=== PATIENT | male | born 1985 | race Caucasian/White ===

== ENCOUNTER 2018-04-02 04:52 | Emergency (ER) | payer OTHER ==
[~2018-04-02] VITALS: Ht 177.8 cm; Wt 84.1 kg
[~2018-04-02 04:52] MED LIST: LORTAB 5/500 501 TAB PO; NO HOME MEDICATIONS; ZOFRAN 4MG T4 MG/TAB PO
[2018-04-02 04:54] VITALS: TEMP 97
[2018-04-02 05:42] LABS: COLLECTION METHOD CLEAN CATCH
[2018-04-02 05:45] LABS: BASO # 0.1 (0.0-0.2); BASO % 1.2 % (0.0-2.0); EOS # 0.3 (0.0-0.7); GRAN # 2.4 (1.4-6.5); GRAN % 34.8 % (42.2-75.2); HEMATOCRIT 41.6 % (42.0-52.0); HEMOGLOBIN 15.1 g/dl (13.5-18.0); LYMPH # 3.5 (1.2-3.4); LYMPH % 52.4 % (20.0-51.0); MEAN CELL VOLUME 83 fl (80.0-100.0); MEAN CORPUSCULAR HEMOGLOBIN 30 pg (27.0-31.0); MEAN CORPUSCULAR HGB CONC 36 g/dl (33.0-37.0); MEAN PLATELET VOLUME 11.3 fl (7.4-10.4); MONO # 0.5 (0.1-0.6); MONO % 7.3 % (1.7-9.3); PLATELET COUNT 145 K/mm3 (130-400); RED BLOOD COUNT 5.01 M/mm3 (4.20-5.60); REDCELL DISTRIBUTION WIDTH-CV 12.6 % (11.5-14.5)
[2018-04-02 05:51] LABS: MUCOUS Present /lpf; PH 6 (5-8); SQUAMOUS EPITHELIAL 0-2 /hpf; URINE APPEARANCE Clear; URINE BACTERIA Rare /hpf; URINE BILIRUBIN Negative (NEGATIVE); URINE BLOOD 1+ (NEGATIVE); URINE COLOR Yellow; URINE GLUCOSE Negative (NEGATIVE); URINE KETONE Negative (NEGATIVE); URINE LEUKOCYTE ESTERASE Negative (NEGATIVE); URINE NITRATE Negative (NEGATIVE); URINE PROTEIN(semi-quant) Negative (NEGATIVE); URINE UROBILINOGEN Negative (NEGATIVE)
[2018-04-02 05:54] LABS: ALBUMIN 4.3 gm/dL (3.5-5.0); BILIRUBIN,TOTAL 0.7 mg/dL (0.0-1.0); CALCIUM 9.7 mg/dL (8.4-10.2); CREATININE, serum 1.16 mg/dL (0.66-1.25); POTASSIUM 3.4 mmol/L (3.4-5.0); TOTAL PROTEIN 7.7 gm/dL (6.4-8.2)
[2018-04-02 07:47] VITALS: BP 116/78; PULSE 73
[2018-04-03] MEDS ORDERED: ZOFRAN ODT4 MG PO (05:10)
[2018-04-03] MEDS ORDERED: NORCO 325 MG-51 TAB PO (05:10)
== END 2018-04-02 07:58 | disposition home or self-care (01) ==
LOC: COL.ER 04:52
PROVIDERS: Emergency Medicine
DX: N20.2 Calculus of kidney with calculus of ureter (principal)
CPT/HCPCS: J1885; J2405; J3010; J7030

== ENCOUNTER 2018-04-03 02:26 | Emergency (ER) | payer OTHER ==
[~2018-04-03] VITALS: Ht 177.8 cm; Wt 84.1 kg
[2018-04-03 02:32] VITALS: BP 139/88; TEMP 97.8
[2018-04-03] MEDS ORDERED: NORCO 325 MG-51 TAB PO (05:10)
[2018-04-03] MEDS ORDERED: ZOFRAN ODT4 MG PO (05:10)
[2018-04-03 05:40] VITALS: PULSE 90
== END 2018-04-03 05:38 | disposition home or self-care (01) ==
LOC: COL.ER 02:26
DX: N20.1 Calculus of ureter (principal); Z87.442 Personal history of urinary calculi
CPT/HCPCS: J1170; J1885; J2060; J2405; J3010; J7030

== ENCOUNTER 2019-06-11 02:41 | Emergency (ER) | payer OTHER ==
[~2019-06-11] VITALS: Ht 177.8 cm; Wt 86.4 kg
[~2019-06-11 02:41] MED LIST changes: +NORCO 325 MG-51 TAB PO; +ZOFRAN ODT4 MG PO
[2019-06-11 02:50] VITALS: BP 132/82; PULSE 78; TEMP 97.7
[2019-06-11] MEDS ORDERED: UROCIT-K 1010 MEQ PO (02:52)
[2019-06-11 03:26] LABS: BASO # 0.1 (0.0-0.2); BASO % 0.5 % (0.0-2.0); EOS # 0.2 (0.0-0.7); EOS % 1.9 % (0-4.0); GRAN # 6.6 (1.4-6.5); GRAN % 70.6 % (42.2-75.2); HEMATOCRIT 42.3 % (42.0-52.0); HEMOGLOBIN 15.2 g/dl (13.5-18.0); LYMPH % 21.3 % (20.0-51.0); MEAN CELL VOLUME 86 fl (80.0-100.0); MEAN CORPUSCULAR HEMOGLOBIN 31 pg (27.0-31.0); MEAN CORPUSCULAR HGB CONC 36 g/dl (33.0-37.0); MEAN PLATELET VOLUME 11.8 fl (7.4-10.4); MONO # 0.5 (0.1-0.6); MONO % 5.4 % (1.7-9.3); PLATELET COUNT 141 K/mm3 (130-400); RED BLOOD COUNT 4.91 M/mm3 (4.20-5.60); REDCELL DISTRIBUTION WIDTH-CV 12.4 % (11.5-14.5)
[2019-06-11 03:37] LABS: ALANINE AMINOTRANSFERASE 45 U/L (21-72); ALBUMIN 4.6 gm/dL (3.5-5.0); ALKALINE PHOSPHATASE 79 U/L (50-136); ANION GAP 13 mmol/L (7-16); AST,SGOT 61 U/L (15-37); BILIRUBIN,TOTAL 0.8 mg/dL (0.0-1.0); BLOOD UREA NITROGEN 15 mg/dL (9-20); CALCIUM 9.7 mg/dL (8.4-10.2); CARBON DIOXIDE 21 mmol/L (22-30); CHLORIDE 106 mmol/L (98-107); GLUCOSE 173 mg/dL (74-106); SODIUM 140 mmol/L (137-145); TOTAL PROTEIN 7.8 gm/dL (6.4-8.2)
[2019-06-11 03:38] LABS: C-REACTIVE PROTEIN < 0.5 mg/dL (0.0-0.9)
[2019-06-11 04:57] LABS: COLLECTION METHOD CLEAN CATCH
[2019-06-11 05:17] LABS: MUCOUS Present /lpf; PH 7 (5-8); SQUAMOUS EPITHELIAL 0-2 /hpf; URINE APPEARANCE Hazy; URINE BACTERIA None Seen /hpf; URINE BILIRUBIN Negative (NEGATIVE); URINE BLOOD 3+ (NEGATIVE); URINE COLOR Yellow; URINE GLUCOSE Negative (NEGATIVE); URINE KETONE 2+ (NEGATIVE); URINE LEUKOCYTE ESTERASE Negative (NEGATIVE); URINE NITRATE Negative (NEGATIVE); URINE PROTEIN(semi-quant) 1+ (NEGATIVE); URINE RBC >50 /hpf; URINE UROBILINOGEN Negative (NEGATIVE)
[2019-06-11] MEDS ORDERED: ZOFRAN ODT4 MG PO (05:43)
[2019-06-11] MEDS ORDERED: PHENERGAN25 MG RC (05:43)
[2019-06-11] MEDS ORDERED: NORCO 325 MG-51 TAB PO (05:43)
== END 2019-06-11 05:55 | disposition home or self-care (01) ==
LOC: COL.ER 02:41
PROVIDERS: Emergency Medicine
DX: N23 Unspecified renal colic (principal); Z87.442 Personal history of urinary calculi
CPT/HCPCS: J1170; J1885; J2405; J7030

== ENCOUNTER 2019-06-13 13:47 | Day surgery (SDC) | payer OTHER ==
[2019-06-13] VITALS (11 sets, daily range): BP systolic 100–142; BP diastolic 61–81; PULSE 16–82; TEMP 62–98.9
[~2019-06-13] VITALS: Ht 177.8 cm; Wt 88.5 kg
--- NOTE | 2019-06-13 13:30 | NUR ---
[facility] C/O PAIN 3/10 ON PAIN SCALE. DENIES NAUSEA AT THIS TIME. ONLY ATE A BITE OF APPLE SAUCE.
--- NOTE | 2019-06-13 13:45 | NUR ---
PATIENT RESTING QUIETLY
[~2019-06-13 13:47] MED LIST changes: +PHENERGAN25 MG RC; +UROCIT-K 1010 MEQ PO
[2019-06-13] MEDS ORDERED: ALEVE 220MG220 MG PO (14:12)
[2019-06-13] MEDS ORDERED: ROXICODONE 55 MG/TAB PO (14:12)
[2019-06-13] MEDS ORDERED: STOOL SOFTENER100 M2 PO (14:13)
[2019-06-13] MEDS ORDERED: FLOMAX 0.40.4 MG/CAP PO (14:14)
[2019-06-13] MEDS ORDERED: ZOFRAN 4MG T4 MG/TAB PO (14:14)
--- NOTE | 2019-06-13 14:38 | NUR ---
TO RM 1 AT 1404- CALL LIGHT IN REACH AT BEDSIDE.
--- NOTE | 2019-06-13 15:14 | NUR ---
AMBULATED TO BATHROOM WITH ASSIST AND TOLERATED WELL.
--- NOTE | 2019-06-13 15:21 | NUR ---
PATIENT CALLED AND EVERY ONCE IN A WHILE THERE WOULD BE A DROP DOWN HIS HAND. RETIGHTED HUB OF TUBING TO CATHETER AND RECOVERED WITH NEW OPSIDE AND TAPE. INTRUCTED PATIENT TO CALL IF IT CONTINUED.
--- NOTE | 2019-06-13 16:30 | NUR ---
Patient up from OR. Alert and oriented. Tolerating clear liquids. Patient has been up to restroom and voided without difficulty. Urine red tinged. Denies pain or further needs at this time. VSS. Assessment complete. Will continue to monitor.
--- NOTE | 2019-06-13 18:30 | NUR ---
Patient has done well this afternoon. Denies pain at this time. VSS. Tolerating diet. Denies further needs at this time. 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
--- NOTE | 2019-06-13 19:00 | NUR ---
Pt resting in bed. at bedside. No distress noted. VSS. Pt voiding without difficulty. Tolerating PO intake. Will continue post op VS and discharge.
--- NOTE | 2019-06-13 19:28 | NUR ---
Pt reports that they are supposed to receive a script for medications at discharge. There is no script on the chart. There is also no follow up appointment. Dr. Vazquez called. No answer.
--- NOTE | 2019-06-13 19:45 | NUR ---
Dr. Nguyen called after second failed attempt to talk to Dr. Vazquez. Orders received for Take Home [place].
--- NOTE | 2019-06-13 20:09 | NUR ---
Pt has met criteria for discharge. Discharge instructions given. Take home [place] given per MD order. Pt denies questions. LH INT discontinued.
== END 2019-06-13 20:15 | disposition home or self-care (01) ==
LOC: SDCO 13:47 → SURG 17:29 → SDCO 20:15
DX: N20.1 Calculus of ureter (principal); Z84.1 Family history of disorders of kidney and ureter; Z98.52 Vasectomy status; Z82.49 Family history of ischemic heart disease and other diseases of the circulatory system; Z79.899 Other long term (current) drug therapy
CPT/HCPCS: OP; C1769; C2617; J0690; J1100; J1885; J2405; J2704; J3010; J7120